=== PATIENT | male | born 1985 | race Caucasian/White ===

== ENCOUNTER 2019-11-26 16:01 | Emergency (ER) | payer OTHER ==
[~2019-11-26] VITALS: Ht 167.6 cm; Wt 63.5 kg
[2019-11-26 16:19] VITALS: BP 111/69
== END 2019-11-26 16:37 | disposition home or self-care (01) ==
LOC: ER 16:03
DX: K64.8 Other hemorrhoids (principal)

== ENCOUNTER 2020-10-13 15:40 | Emergency (ER) | payer OTHER ==
[~2020-10-13] VITALS: Ht 170.2 cm; Wt 65.8 kg
[2020-10-13 15:45] VITALS: BP 137/70
== END 2020-10-13 16:57 | disposition home or self-care (01) ==
LOC: ER 15:42
DX: M25.561 Pain in right knee (principal); R22.41 Localized swelling, mass and lump, right lower limb